=== PATIENT | female | born 1960 | race Caucasian/White ===

== ENCOUNTER 2017-08-31 19:23 | Inpatient (IN) | payer OTHER ==
[~2017-08-31] VITALS: Ht 165.1 cm; Wt 64.0 kg
[2017-08-31 20:16] LABS: BASOPHILS # (AUTO) 0.03 x10^3/uL (0-0.1); BASOPHILS % (AUTO) 0 % (0-1); EOSINOPHILS % (AUTO) 1 % (1-7); LYMPHOCYTES # (AUTO) 1.92 x10^3/uL (1-3.4); LYMPHOCYTES % (AUTO) 27 % (22-44); MD NO; MEAN CORPUSCULAR HEMOGLOBIN 29.8 pg (27.0-34.8); MEAN CORPUSCULAR HGB CONC 33.5 g/dL (32.4-35.8); MEAN CORPUSCULAR VOLUME 88.8 fL (80-100); MEAN PLATELET VOLUME 9.6 fL (7.4-10.4); MONOCYTES # (AUTO) 0.66 x10^3/uL (0.2-0.8); MONOCYTES % (AUTO) 9 % (2-9); NEUTROPHILS # (AUTO) 4.38 x10^3/uL (1.8-6.8); NEUTROPHILS % (AUTO) 62 % (42-75); PLATELET COUNT 223 x10^3/uL (130-400); RED BLOOD COUNT 4.59 x10^6/uL (3.82-5.3); RED CELL DISTRIBUTION WIDTH 15.4 % (9.6-15.2)
[2017-08-31] MEDS ORDERED: THYR90TA PO (20:24)
[2017-08-31] MEDS ORDERED: RISP3TAB24 PO (20:24)
[2017-08-31 20:25] LABS: ALANINE AMINOTRANSFERASE 485 U/L (12-78); ANION GAP 8 mmol/L (5-15); CALCIUM 8.7 mg/dL (8.5-10.1); CHLORIDE 111 mmol/L (98-107); CREATININE 0.73 mg/dL (0.55-1.02)
[2017-08-31 20:27] LABS: ALKALINE PHOSPHATASE 233 U/L (45-117); BILIRUBIN,TOTAL 2.9 mg/dL (0.2-1.0); TOTAL PROTEIN 7.1 g/dL (6.4-8.2)
[2017-08-31 20:29] LABS: MICROSCOPIC NOT IND
[2017-08-31 20:30] LABS: CULTURE INDICATED? NO
[2017-08-31] MEDS ORDERED: HYDROmorphone 2 MG/ML, 1ML IVPush PRN (21:00)
[2017-08-31] MEDS ORDERED: SODIUM CHLORIDE FLUSH 10ML SYR IVF ONE (21:00)
[2017-08-31] MEDS ORDERED: SODIUM CHLORIDE 0.9% 1,000ML IVBOLUS ONE (21:00)
[2017-08-31] MEDS ORDERED: ONDANSETRON 2MG/ML, 2ML IVPush ONE (21:00)
[2017-08-31] MEDS ORDERED: FAMOTIDINE 20 MG/2 ML IVP ONE (21:00)
[2017-08-31] MEDS ORDERED: FAMOTIDINE 20 MG/2 ML ONE (22:46)
[2017-08-31] MEDS ORDERED: ONDANSETRON 2MG/ML, 2ML ONE (22:46)
[2017-08-31] MEDS ORDERED: ONDANSETRON ODT 4 MG PO PRN (23:00)
[2017-08-31] MEDS ORDERED: morphine SULFATE 10 MG/ML, 1ML IVPush PRN (23:00)
[2017-08-31] MEDS ORDERED: ENALAPRILAT 1.25 MG/ML, 2ML IVPush PRN (23:00)
[2017-08-31] MEDS ORDERED: BISACODYL 10 MG SUPP PR PRN (23:00)
[2017-08-31] MEDS ORDERED: ONDANSETRON 2MG/ML, 2ML IVPush PRN (23:00)
[2017-08-31] MEDS ORDERED: LABETALOL 5MG/ML, 20ML IVPush PRN (23:00)
[2017-08-31] MEDS ORDERED: DOCUSATE 100 MG CAPSULE PO PRN (23:00)
[2017-08-31] MEDS ORDERED: RISPERIDONE 1 MG TABLET PO SCH (23:00)
[2017-08-31 23:07] VITALS: BP 122/68
[2017-08-31] MEDS: SODIUM CHLORIDE 0.9% 1,000 ML IV SCH (23:49)
[2017-09-01] MEDS: ENOXAPARIN 40 MG/0.4 ML SQ SCH ×2 (00:22→22:53)
[2017-09-01 02:37] VITALS: BP 98/56
[2017-09-01 05:24] LABS: BASOPHILS # (AUTO) 0.05 x10^3/uL (0-0.1); BASOPHILS % (AUTO) 1 % (0-1); CHLORIDE 114 mmol/L (98-107); EOSINOPHILS % (AUTO) 3 % (1-7); LYMPHOCYTES % (AUTO) 24 % (22-44); MD NO; MEAN CORPUSCULAR HEMOGLOBIN 30.1 pg (27.0-34.8); MEAN CORPUSCULAR HGB CONC 33.3 g/dL (32.4-35.8); MEAN CORPUSCULAR VOLUME 90.4 fL (80-100); MONOCYTES # (AUTO) 0.56 x10^3/uL (0.2-0.8); MONOCYTES % (AUTO) 8 % (2-9); NEUTROPHILS # (AUTO) 4.37 x10^3/uL (1.8-6.8); NEUTROPHILS % (AUTO) 64 % (42-75); PLATELET COUNT 195 x10^3/uL (130-400); RED CELL DISTRIBUTION WIDTH 15.5 % (9.6-15.2)
[2017-09-01 05:44] LABS: ALANINE AMINOTRANSFERASE 361 U/L (12-78); ALBUMIN 3.3 g/dL (3.4-5.0); ALKALINE PHOSPHATASE 192 U/L (45-117); ANION GAP 7 mmol/L (5-15); BILIRUBIN,TOTAL 1.7 mg/dL (0.2-1.0); CALCIUM 7.9 mg/dL (8.5-10.1); CHOL/HDL RATIO 1.9; CHOLESTEROL, TOTAL 108 mg/dL (140-239); CREATININE 0.65 mg/dL (0.55-1.02); HDL CHOL % 53 % (28-40); HDL CHOLESTEROL (DIRECT) 57 mg/dL (40-60); LDL CHOLESTEROL,CALCULATED 40 mg/dL (54-169); LDL/HDL RATIO 0.7 (0.5-3.0); THYROID STIMULATING HORMONE 0.411 mIU/L (0.358-3.740); TOTAL PROTEIN 6.1 g/dL (6.4-8.2); TRIGLYCERIDES 57 mg/dL (50-200); VLDL CHOLESTEROL 11 mg/dL (0-25)
[2017-09-01 07:00] VITALS: BP 110/68
[2017-09-01] MEDS: THYROID 30 MG TABLET PO SCH (08:11)
[2017-09-01] MEDS: SENNA/DOCUSATE TABLET PO SCH (08:11)
[2017-09-01] MEDS: SODIUM CHLORIDE 0.9% 1,000 ML IV SCH ×2 (09:54→20:00)
[2017-09-01] MEDS ORDERED: BUPIVACAINE/PF-EPI 0.5% 1:200K ONE (14:15)
[2017-09-01] MEDS ORDERED: FENTANYL PF 250 MCG/5ML ONE (14:35)
[2017-09-01] MEDS ORDERED: CEFOTETAN PMX 2GM/50ML 50 ML IVPB ONE (14:48)
[2017-09-01] MEDS ORDERED: DEXAMETHASONE 4 MG/ML, 1ML ONE ×2 (14:54)
[2017-09-01] MEDS ORDERED: MEPERIDINE/PF 25MG/0.5ML IVPush PRN (15:00)
[2017-09-01] MEDS ORDERED: FENTANYL PF 100 MCG/2ML IV PRN (15:00)
[2017-09-01] MEDS ORDERED: BUPIVACAINE/PF-EPI 0.5% 1:200K IM ONE (15:00)
[2017-09-01] MEDS ORDERED: HYDROmorphone 1 MG/ML, 1ML IV PRN (15:00)
[2017-09-01] MEDS ORDERED: LABETALOL 5MG/ML, 20ML IV PRN (15:00)
[2017-09-01] MEDS ORDERED: hydrALAzine 20 MG/ML, 1ML IV PRN (15:00)
[2017-09-01] MEDS ORDERED: ONDANSETRON ODT 8 MG PO PRN (15:00)
[2017-09-01] MEDS ORDERED: PROMETHAZINE 25 MG/ML, 1ML IV PRN (15:00)
[2017-09-01] MEDS ORDERED: ACETAMINOPHEN 325 MG TABLET PO PRN (15:00)
[2017-09-01] MEDS ORDERED: OXYcodone 5 MG/5 ML ORAL.SOL UDC PO PRN (15:00)
[2017-09-01] MEDS ORDERED: PROPOFOL 10 MG/ML, 20ML ONE (15:03)
[2017-09-01] MEDS ORDERED: SUCCINYLCHOLINE 20 MG/ML, 10ML ONE (15:03)
[2017-09-01] MEDS ORDERED: ONDANSETRON 2MG/ML, 2ML ONE (15:04)
[2017-09-01] MEDS ORDERED: ROCURONIUM 10MG/ML,5ML ONE (15:04)
[2017-09-01] MEDS ORDERED: GLYCOPYRROLATE 0.4 MG/2 ML, 2ML ONE (15:17)
[2017-09-01] MEDS ORDERED: NEOSTIGMINE 1 MG/ML, 10ML ONE (15:17)
[2017-09-01] MEDS ORDERED: OXYcodone 5 MG/5 ML ORAL.SOL UDC ONE (15:37)
[2017-09-01] MEDS ORDERED: ACETAMINOPHEN 325 MG TABLET ONE (15:37)
[2017-09-01 16:30] VITALS: BP 119/68
[2017-09-01 20:10] VITALS: BP 121/69
[2017-09-02 00:18] VITALS: BP 94/51
[2017-09-02 05:08] LABS: ALANINE AMINOTRANSFERASE 260 U/L (12-78); ALBUMIN 3.3 g/dL (3.4-5.0); ANION GAP 6 mmol/L (5-15); CALCIUM 8.6 mg/dL (8.5-10.1); CHLORIDE 107 mmol/L (98-107)
[2017-09-02 05:11] LABS: ALKALINE PHOSPHATASE 177 U/L (45-117); BILIRUBIN,TOTAL 1.1 mg/dL (0.2-1.0); CREATININE 0.95 mg/dL (0.55-1.02); TOTAL PROTEIN 6.2 g/dL (6.4-8.2)
[2017-09-02 05:16] LABS: MEAN CORPUSCULAR HEMOGLOBIN 29.8 pg (27.0-34.8); MEAN CORPUSCULAR HGB CONC 33.1 g/dL (32.4-35.8); MEAN CORPUSCULAR VOLUME 90.1 fL (80-100); MEAN PLATELET VOLUME 10.5 fL (7.4-10.4); PLATELET COUNT 208 x10^3/uL (130-400); RED BLOOD COUNT 4.49 x10^6/uL (3.82-5.3); RED CELL DISTRIBUTION WIDTH 15.4 % (9.6-15.2)
[2017-09-02] MEDS: SODIUM CHLORIDE 0.9% 1,000 ML IV SCH (05:26)
[2017-09-02 05:55] LABS: BASOPHILS # (AUTO) 0.03 x10^3/uL (0-0.1); BASOPHILS % (AUTO) 0 % (0-1); EOSINOPHILS % (AUTO) 0 % (1-7); LYMPHOCYTES # (AUTO) 0.94 x10^3/uL (1-3.4); LYMPHOCYTES % (AUTO) 10 % (22-44); MD SCAN; MONOCYTES # (AUTO) 0.58 x10^3/uL (0.2-0.8); MONOCYTES % (AUTO) 6 % (2-9); NEUTROPHILS # (AUTO) 7.73 x10^3/uL (1.8-6.8); NEUTROPHILS % (AUTO) 83 % (42-75)
[2017-09-02 06:25] VITALS: BP 90/56
[2017-09-02] MEDS: SENNA/DOCUSATE TABLET PO SCH (08:48)
[2017-09-02] MEDS: THYROID 30 MG TABLET PO SCH (08:48)
== END 2017-09-02 10:59 | disposition home or self-care (01) | DRG 419 ==
LOC: ED 21:02 → EDIP 22:12 → 4NOR 23:00
PROVIDERS: ADMIT Internal Medicine; ATTEND Internal Medicine
PROC: 0FT44ZZ Resection of Gallbladder, Percutaneous Endoscopic Approach (ICD-10-PCS; principal; 2017-09-01 15:00)
DX: K85.10 Biliary acute pancreatitis without necrosis or infection (principal); E03.9 Hypothyroidism, unspecified; F41.1 Generalized anxiety disorder; Z90.49 Acquired absence of other specified parts of digestive tract
CPT/HCPCS: 36415; 99285; S0028; 74181; 76700; 80053; 80061; 81003; 83690; 83735; 84100; 84439; 84443; 84703; 85025; 88304; 93005; 96374; J1100; J1650; J2405; J2704; J2710; J3010; J0330; J7030; S0074

== ENCOUNTER 2017-10-14 07:47 | Emergency (ER) | payer OTHER ==
[~2017-10-14] VITALS: Ht 165.1 cm; Wt 61.1 kg
[~2017-10-14 07:47] MED LIST: RISP3TAB24 PO; THYR90TA PO
[2017-10-14 07:49] VITALS: BP 101/64
[2017-10-14] MEDS ORDERED: DIPH,PERTUSS(ACELL),TET VAC/PF 0.5 ML IM-VACC ONE ×2 (08:25→08:30)
[2017-10-14] MEDS ORDERED: BACITRACIN ZINC OINT 500U/GM, 0.9 GM ONE ×2 (08:41→09:23)
== END 2017-10-14 10:09 | disposition home or self-care (01) ==
LOC: ED 09:30
DX: S52.572A Other intraarticular fracture of lower end of left radius, initial encounter for closed fracture (principal); S60.511A Abrasion of right hand, initial encounter; S80.211A Abrasion, right knee, initial encounter; W01.0XXA Fall on same level from slipping, tripping and stumbling without subsequent striking against object, initial encounter; Y93.01 Activity, walking, marching and hiking; Y92.488 Other paved roadways as the place of occurrence of the external cause; Y99.8 Other external cause status; E03.9 Hypothyroidism, unspecified
CPT/HCPCS: 29125; 90471; 90715; 99284